=== PATIENT | female | born 1985 | race African-American/Black ===

== ENCOUNTER 2020-12-13 20:44 | Emergency (ER) | payer MEDICAID ==
[~2020-12-13] VITALS: Ht 162.6 cm; Wt 88.5 kg
[2020-12-13 20:49] VITALS: BP_SYST 137
[2020-12-13] MEDS ORDERED: IBUP-1969 PO (22:44)
[2020-12-13 23:08] VITALS: BP_SYST 137
== END 2020-12-13 23:09 | disposition home or self-care (01) ==
LOC: SED 20:44
DX: S00.03XA Contusion of scalp, initial encounter (principal); W01.0XXA Fall on same level from slipping, tripping and stumbling without subsequent striking against object, initial encounter; Y93.89 Activity, other specified; Y92.89 Other specified places as the place of occurrence of the external cause; Y99.8 Other external cause status
CPT/HCPCS: 70450-TC; 76376; 81025; 99284

== ENCOUNTER 2021-05-26 02:07 | Emergency (ER) | payer SELFPAY ==
[~2021-05-26] VITALS: Ht 160 cm; Wt 88.5 kg
[~2021-05-26 02:07] MED LIST: IBUP-1969 PO
[2021-05-26 02:20] VITALS: BP_SYST 109
--- NOTE | 2021-05-26 02:30 | NUR ---
Patient to ER bed 4 to gown for evaluation. Side rails up. Report given to MARY SCOTT
--- NOTE | 2021-05-26 02:50 | NUR ---
PT PRESENTS TO THE ED WITH C/O SEVERE HEADACHES WITH NAUSEA FOR THE PAST COUPLE DAYS. SHE RATES HER PAIN 10/10.
[2021-05-26] MEDS ORDERED: ACETAMINOPHEN 500 MG TABLET ONE (03:15)
[2021-05-26] MEDS ORDERED: METOCLOPRAMIDE HCL 10 MG/2 ML VIAL ONE (03:15)
[2021-05-26 03:42] LABS: BILIRUBIN,URINE NEGATIVE (NEGATIVE); BLOOD, URINE NEGATIVE (NEGATIVE); CLARITY/URINE SL CLOUDY (CLEAR); COLOR,URINE YELLOW (YELLOW); GLUCOSE,URINE NEGATIVE (NEGATIVE); KETONES,URINE NEGATIVE (NEGATIVE); LEUKOCYTE ESTERASE ,URINE NEGATIVE (NEGATIVE); NITRITE, URINE NEGATIVE (NEGATIVE); PROTEIN URINE TRACE (NEGATIVE); UROBILINOGEN,URINE 0.2 (0.2-1.0)
[2021-05-26 03:47] LABS: BACTERIA,URINE None Seen /HPF (None Seen); RBC,URINE 0-3 /HPF (0-3); WBC,URINE 0-3 /HPF (0-3)
[2021-05-26 03:48] LABS: MUCUS,URINE 2+ /LPF (None Seen)
--- NOTE | 2021-05-26 03:53 | NUR ---
PT GIVEN REGLAN AND TYLENOL WITH GOOD RESULT. PT ALSO PUT ON A NON RE BREATHER MASK. PT CONTINUES ON THE MONITOR
[2021-05-26] MEDS ORDERED: IMI50 PO (03:56)
[2021-05-26] MEDS ORDERED: BUTA1CAP43 PO (03:56)
--- NOTE | 2021-05-26 04:00 | NUR ---
Patient given written and verbal discharge instructions and verbalizes understanding. ER MD discussed with patient the results and treatment provided. Patient in stable condition. ID arm band removed. IV catheter removed intact and dressing applied, no active bleeding. Rx of IMITREX given. Patient educated on pain management and to follow up with PMD. Pain Scale 0. Opportunity for questions provided and answered. Medication side effect fact sheet provided.
[2021-05-26 04:06] VITALS: BP_SYST 109
[2021-05-26] MEDS ORDERED: ACETAMINOPHEN 500 MG TABLET PO ONE (09:45)
[2021-05-26] MEDS ORDERED: NACL 0.9% 1,000 ML IV ONE (09:45)
[2021-05-26] MEDS ORDERED: METOCLOPRAMIDE HCL 10 MG/2 ML VIAL IVP ONE (09:45)
== END 2021-05-26 04:00 | disposition home or self-care (01) ==
LOC: SED 02:07
DX: R51.9 Headache, unspecified (principal); Z79.899 Other long term (current) drug therapy
CPT/HCPCS: 81000; 99283; J2765

== ENCOUNTER 2024-03-26 04:21 | Emergency (ER) | payer SELFPAY ==
[~2024-03-26] VITALS: Ht 160 cm; Wt 95.3 kg
[~2024-03-26 04:21] MED LIST changes: +IMI50 PO
[2024-03-26 04:48] VITALS: BP_SYST 126; PULSE 100; RESP 20; TEMP 97.6; O2SAT 97
[2024-03-26] MEDS: methylPREDNISolone SOD SUCC/PF 62.5 MG/ML VIAL IM ONE (05:06)
[2024-03-26] MEDS ORDERED: ALBMDI INH (05:28)
[2024-03-26] MEDS ORDERED: PRED20TA PO (05:28)
[2024-03-26] MEDS ORDERED: BENZ100C92 PO (05:28)
[2024-03-26] MEDS: IPRATROPIUM/ALBUTEROL SULFATE 3 ML AMPUL.NEB (DUONEB) INH ONE (05:40)
[2024-03-26 06:05] VITALS: BP_SYST 112; PULSE 102; RESP 18; TEMP 97.6; O2SAT 95
== END 2024-03-26 06:00 | disposition home or self-care (01) ==
LOC: SED 04:21
DX: J45.901 Unspecified asthma with (acute) exacerbation (principal); N39.0 Urinary tract infection, site not specified; Z79.899 Other long term (current) drug therapy; Z79.2 Long term (current) use of antibiotics
CPT/HCPCS: 81025; 94640; 94760; 96372; 99283; J2930